=== PATIENT | male | born 1960 | race Caucasian/White ===

== ENCOUNTER 2017-05-25 18:05 | Emergency (ER) | payer BC ==
[2017-05-25 19:23] VITALS: BP 149/74
--- NOTE | 2017-05-25 19:36 | ED Physician Documentation ---
Low Back Pain - HISTORIAN Historian: patient - HPI Stated Complaint: LOW BACK PAIN Chief Complaint: Low Back Pain/ Injury Additional Information: started suddenly 3 days ago, started in low back, now hurting inner thigh, in to testicle and around to back. worse when externally rotating knee. back hurts most when he walks. History: back pain Onset: days ago Duration: continues in ED Recent Injury: No Severity: moderate Quality: burning, sharp Associated Symptoms: denies: fever, chills, sweating, constipation, incontinence , problems urinating, weakness Worsened By:: upright position Relieved By: nothing Further Comments: no - ROS CONST: no problems CVS/RESP: none EYES/ENT: none MS/SKIN/LYMPH: none Neuro/Psych: none GI/: denies: abdominal pain, black stools - PAST HX Past History: back pain, gall stones Other History: prostatitis Surgeries/Procedures: cholecystectomy, other (ortho) Allergies/Adverse Reactions: Allergies Allergy/AdvReac Type Severity Reaction Status Date / Time Sulfa (Sulfonamide Allergy Verified 05/25/17 19:23 Antibiotics) tetracycline Allergy Verified 05/25/17 19:23 Home Medications: Ambulatory Orders Medication Instructions Recorded Lansoprazole [Prevacid] 30 mg PO DAILY 09/07/12 Aspirin [Saeed] 81 mg PO DAILY 05/25/17 Atorvastatin Calcium 20 mg PO DAILY 05/25/17 - SOCIAL HX Smoking History: non-smoker Alcohol Use: none Drug Use: none - FAMILY HX Family History: other (CVA, DM) - VITAL SIGNS Vital Signs: Vital Signs Temp Pulse Resp BP Pulse Ox 98.2 F 79 19 149/74 96 05/25/17 19:17 05/25/17 19:17 05/25/17 19:17 05/25/17 19:17 05/25/17 19:17 - REVIEWED ASSESSMENTS Nursing Assessment Reviewed: Yes Vitals Reviewed: Yes ED Results Lab/Radiology - Radiology Radiology Impressions: ct no acute - Orders Orders: ED Orders Category Date Time Status CT ABD & PELVIS W/O CON Stat Exams 05/25/17 Taken Low Back Pain/Injury - Physical Exam General Appearance: no acute distress, alert EENT: ENT inspection normal Neck: non-tender Resp/CVS: chest non-tender Abdomen: non-tender Back: vertebral point-tendernes, muscle spasm Straight Leg Raising: Positive Right Neuro/Psych: oriented x3, motor nml, sensation nml, mood/affect nml Skin: warm/dry, normal color Extremities: non-tender, no evidence of injury, no edema Discharge Clincal Impression: Sciatica associated with disorder of lumbar spine Referrals: Jony Rodriguez MD [Primary Care Provider] - 2 Days Condition: Stable Disposition: 01 HOME, SELF-CARE Decision to Admit: NO Date of Decison to Admit: 05/25/17 Decision Time: 20:11
[2017-05-25] MEDS ORDERED: methylPREDNISolone SOD SUCC 125 MG/2 ML VIAL IM ONE (20:10)
--- NOTE | 2017-05-26 06:20 | Diagnostic Imaging Report ---
JONAH LEAVITT [facility] [id number] [facility] [address] [place], [place]. [address] Report Submission Date: May 25, 2017 8:06:25 PM CDT Patient Study Name: FRANK PEREZ Date: May 25, 2017 7:41:01 PM CDT Modality Type: CT\SR Gender: M Description: CT ABD & PELVIS W/O CO : 56 Institution: [facility] Physician: JONAH LEAVITT Examination: CT Abdomen/pelvis History: Right abdominal discomfort. Comparison exams: None available Technique: CT Abdomen/pelvis without contrast protocol. Findings: Liver, spleen, adrenal glands, kidneys, pancreas are without irregularity given exam technique. Surgical clips gallbladder fossa. Kidneys without suspicious calcification. Ureters are nondilated in their course of the abdomen and pelvis. Bladder margins within normal limits. Abdominal aorta with mild peripheral atherosclerotic disease. No aneurysmal dilation. Cardiac silhouette not enlarged. No pericardial effusion. Bowel without contrast limiting evaluation. No evidence for acute mesenteric inflammation or free air. Stool throughout the large bowel limiting sensitivity. Appendix is visualized and is without inflammatory changes. Few sigmoidal diverticula. No adjacent inflammation. Spinal stimulator. No inguinal hernia. Osseous structures demonstrate degenerative changes. Lung bases with parenchymal scarring. Mild pleural thickening. No effusion. Impression: No evidence for renal calcification. No abnormal ureteric dilation. No evidence for acute abdominal inflammatory process. No abnormal bowel dilation inflammation. No inguinal hernia. Sigmoid diverticulosis. No evidence for acute diverticulitis. Electronically signed on May 25, 2017 8:06:25 PM CDT by: Que VIEYRA
== END 2017-05-25 20:24 | disposition home or self-care (01) ==
LOC: ED 19:05
DX: M54.30 Sciatica, unspecified side (principal)
CPT/HCPCS: 74176; J2930; 96372; 99283

== ENCOUNTER 2017-10-21 09:29 | Outpatient (CLI) | payer BC ==
[2017-10-21 10:32] LABS: eGFR (African) > 60; eGFR (Non-African) > 60
== END 2017-10-21 09:30 ==
LOC: LAB 09:29
PROVIDERS: ATTEND Family Medicine
DX: R73.9 Hyperglycemia, unspecified (principal); E03.9 Hypothyroidism, unspecified; E78.5 Hyperlipidemia, unspecified
CPT/HCPCS: 36415; 80053; 80061; 83036; 84443

== ENCOUNTER 2018-07-30 10:49 | Outpatient (CLI) | payer BC ==
[2018-08-01 07:28] LABS: eGFR (Non-African) > 60
== END 2018-07-30 10:50 ==
LOC: LAB 10:49
PROVIDERS: ATTEND Family Medicine
DX: R73.9 Hyperglycemia, unspecified (principal); E78.5 Hyperlipidemia, unspecified
CPT/HCPCS: 36415; 80053; 80061; 83036

== ENCOUNTER 2018-08-02 09:29 | Outpatient (CLI) | payer BC | END 2018-08-02 10:30 | LOC: RT 09:29 | PROVIDERS: ATTEND Family Medicine | DX: R61 Generalized hyperhidrosis (principal) ==

== ENCOUNTER 2018-12-29 15:17 | Outpatient (CLI) | payer BC | END 2018-12-29 15:19 | LOC: LAB 15:17 | PROVIDERS: ATTEND Family Medicine | DX: R73.9 Hyperglycemia, unspecified (principal) | CPT/HCPCS: 36415; 80053; 83036 ==

== ENCOUNTER 2019-01-26 19:46 | Emergency (ER) | payer BC ==
[2019-01-26] MEDS ORDERED: methylPREDNISolone ACETATE 80 MG/ML VIAL IM ONE (20:13)
== END 2019-01-26 20:21 ==
LOC: ED 19:46
DX: M25.512 Pain in left shoulder (principal); G89.29 Other chronic pain
CPT/HCPCS: J1040